=== PATIENT | male | born 1955 | race Caucasian/White ===

== ENCOUNTER 2017-09-12 18:09 | Emergency (ER) | payer OTHER ==
[2017-09-12] MEDS: IOHEXOL 300 MG/ML 100ML VIAL. IV ×2 (18:30)
[2017-09-12] MEDS ORDERED: 0.9 % SODIUM CHLORIDE 10 ML DISP.SYRIN. IV ×2 (18:30)
[2017-09-12] MEDS ORDERED: CONTRAST GIVEN MC ×2 (18:30)
[2017-09-12 18:32] LABS: ADD MAN DIFF? NO; BILIRUBIN,URINE NEGATIVE (NEG); CLARITY,URINE CLEAR; COLOR,URINE YELLOW; GLUCOSE,URINE >=1000 mg/dL (NEG); NITRITE,URINE NEGATIVE (NEG); PROTEIN,URINE NEGATIVE (NEG-TRACE)
[2017-09-12 18:34] LABS: BASO % 1 % (0-3); EOS # 0.2 x10^3/uL (0.0-0.7); EOS % 3 % (0-3); HEMATOCRIT 45.9 % (39.0-53.0); HEMOGLOBIN 15.7 g/dL (13.0-17.5); LYMPH # 1.4 x10^3/uL (1.0-4.8); LYMPH % 23 % (24-48); MEAN CORPUSCULAR HEMOGLOBIN 30 pg (25-35); MEAN CORPUSCULAR HGB CONC 34 g/dL (31-37); MEAN CORPUSCULAR VOLUME 87 fL (79-100); MONO # 0.8 x10^3/uL (0.0-1.1); MONO % 14 % (0-9); NEUT # 3.6 x10^3uL (1.8-7.7); NEUT % 60 % (31-73); PLATELET COUNT 181 x10^3/uL (140-400); RED BLOOD COUNT 5.28 x10^6/uL (4.30-5.70); RED CELL DISTRIBUTION WIDTH 14.4 % (11.5-14.5)
[2017-09-12 18:43] LABS: BACTERIA,URINE FEW /HPF (0-FEW)
[2017-09-12 18:44] LABS: RBC,URINE OCC /HPF (0-2)
[2017-09-12 18:47] LABS: ANION GAP 11 (6-14); BLOOD UREA NITROGEN 35 mg/dL (8-26); BUN/CREATININE RATIO 29 (6-20); CALCIUM 9.4 mg/dL (8.5-10.1); CARBON DIOXIDE 27 mmol/L (21-32); CHLORIDE 102 mmol/L (98-107); CREATININE 1.2 mg/dL (0.7-1.3); GLUCOSE 214 mg/dL (70-99); POTASSIUM 3.8 mmol/L (3.5-5.1); SODIUM 140 mmol/L (136-145)
[2017-09-12] MEDS: KETOROLAC 30 MG/ML INJ. IV ×2 (18:47)
[2017-09-12] MEDS: ONDANSETRON PF 4 MG/2 ML VIAL. IV ×2 (18:48)
[2017-09-12] MEDS: HYDROmorphone 2 MG/ML VIAL IV/SQ ×4 (18:49→20:36)
[2017-09-12] MEDS: IV NORMAL SALINE 1000ML BAG 1,000 ML IV ×2 (18:50)
[2017-09-12 18:52] LABS: ALBUMIN 3.9 g/dL (3.4-5.0); ALK PHOS 88 U/L (46-116); ALT (SGPT) 24 U/L (16-63); AST (SGOT) 16 U/L (15-37); TOTAL BILIRUBIN 0.8 mg/dL (0.2-1.0); TOTAL PROTEIN 7.7 g/dL (6.4-8.2)
== END 2017-09-12 21:44 | disposition home or self-care (01) ==
LOC: ER 21:44
DX: S20.212A Contusion of left front wall of thorax, initial encounter (principal); S40.012A Contusion of left shoulder, initial encounter; M54.5 Low back pain; M54.6 Pain in thoracic spine; E11.9 Type 2 diabetes mellitus without complications; I10 Essential (primary) hypertension; N40.0 Benign prostatic hyperplasia without lower urinary tract symptoms; Z98.1 Arthrodesis status; V49.88XA Car occupant (driver) (passenger) injured in other specified transport accidents, initial encounter; Y93.89 Activity, other specified; Y99.8 Other external cause status; Y92.488 Other paved roadways as the place of occurrence of the external cause
CPT/HCPCS: 36415; 70450; 71045; 71260; 72125; 72131; 73030; 80053; 81001; 85025; 93005; 96361; 96374; 96375; 96376; 99285-25; J1170; J1885; J2405; J7030; Q9967